=== PATIENT | female | born 1995 | race American Indian/Alaskan Native ===

== ENCOUNTER 2017-12-23 14:01 | Outpatient (CLI) | payer MEDICAID ==
[2017-12-23] MEDS ORDERED: LACTATED RINGERS 500 ML IV ONE (14:24)
[2017-12-23 15:15] VITALS: BP 104/56
== END 2017-12-23 15:10 | disposition home or self-care (01) ==
LOC: TRG 14:01
PROVIDERS: ATTEND Obstetrics & Gynecology
DX: O47.03 False labor before 37 completed weeks of gestation, third trimester (principal); Z3A.36 36 weeks gestation of pregnancy
CPT/HCPCS: 59025

== ENCOUNTER 2018-01-04 13:59 | Outpatient (CLI) | payer MEDICAID ==
[2018-01-04 15:21] VITALS: BP 114/71
--- NOTE | 2018-01-04 15:41 | Ultrasound Report ---
ULTRASOUND BIOPHYSICAL PROFILE: History: well being Technique: Transabdominal ultrasound with Doppler interrogation. 2 - breathing movements 2 - movements 2 - posture and tone 2 - Qualitative amniotic fluid volume 8 - TOTAL SCORE OF POSSIBLE 8 Heart Rate (bpm) 161
--- NOTE | 2018-01-04 17:52 | Ultrasound Report ---
FINAL REPORT PROCEDURE: US OB FOLLOW UP TECHNIQUE: Real-time transabdominal sonography of the uterus, placenta, amniotic fluid, adnexa, and fetus was performed with image documentation. Measurements were obtained to determine age/size. M-mode Doppler was used to document heartbeat. CPT 92552 HISTORY: well being COMPARISON: No prior studies are available for comparison. FINDINGS: ADDITIONAL GESTATION: None. GENERAL: IUP: Single living intrauterine . Position: Cephalic Placental position: Grade 2 fundal, without previa. Amniotic fluid volume: Normal. SYDNEY 11.9 MATERNAL: Uterus: Within normal limits. Cervical length: 3.8 cm. Internal Os: Closed. FETUS: Heart rate and rhythm: 159 BPM, Regular. MEASUREMENTS: BPD: 8.9 centimeters consistent 36 week 0 days HC: 34.6 consistent 40 week 1 day AC: 35.1 consistent 39 week 0 day FL: 7.2 consistent 36 week 4 day Mean Gestational Age (composite criteria): 38 weeks 0 days Ratio biometry: Cephalic index 75.2, HC/AC 0.99 Estimated Weight: 3438 grams. 50 th percentile Estimated Due Date (earliest scan): 01/18/2018 IMPRESSION: Single intrauterine gestation at 38 weeks 0 days. Estimated due date: 01/18/2018. Normal survey with no acute pathology seen at this time. SYDNEY 11.9. Followup anatomic survey details could be performed if warranted
== END 2018-01-04 16:35 | disposition home or self-care (01) ==
LOC: TRG 13:59
PROVIDERS: ATTEND Obstetrics & Gynecology
DX: O47.1 False labor at or after 37 completed weeks of gestation (principal); Z3A.38 38 weeks gestation of pregnancy
CPT/HCPCS: 59025; 76816; 76819

== ENCOUNTER 2018-01-08 14:50 | Outpatient (CLI) | payer MEDICAID ==
[2018-01-08 15:11] VITALS: BP 96/55
--- NOTE | 2018-01-08 16:32 | Ultrasound Report ---
FINAL REPORT EXAM: US OB BPP WO NON-STRESS HISTORY: well being TECHNIQUE: Ultrasound biophysical profile PRIORS: None. FINDINGS: Single live intrauterine gestation is present with heart rate of 149 beats per minute Biophysical profile was performed respiratory motion 2 Body movement 2 tone 2 Amniotic fluid volume 2 Total 05/30 Impression Normal biophysical profile 05/30
--- NOTE | 2018-01-08 16:36 | Ultrasound Report ---
FINAL REPORT EXAM: US OB LIMITED HISTORY: well being TECHNIQUE: Ultrasound obstetrical limited transabdominal PRIORS: None. FINDINGS: Single live intrauterine gestation present in cephalic position. cardiac activity is present with heart rate of 149 beats per minute Amniotic fluid index is within normal limits 14.3 centimeters IMPRESSION: Single live intrauterine gestation in cephalic position Normal amniotic fluid index
== END 2018-01-08 16:27 | disposition home or self-care (01) ==
LOC: TRG 14:50
PROVIDERS: ATTEND Obstetrics & Gynecology
DX: O47.1 False labor at or after 37 completed weeks of gestation (principal); Z3A.38 38 weeks gestation of pregnancy
CPT/HCPCS: 59025; 76815; 76819

== ENCOUNTER 2018-01-09 22:15 | Outpatient (CLI) | payer MEDICAID ==
[2018-01-09 22:53] VITALS: BP 121/76
== END 2018-01-10 00:55 | disposition home or self-care (01) ==
LOC: TRG 22:15
PROVIDERS: ATTEND Obstetrics & Gynecology
DX: O62.9 Abnormality of forces of labor, unspecified (principal); Z3A.39 39 weeks gestation of pregnancy
CPT/HCPCS: 59025

== ENCOUNTER 2018-01-16 10:27 | Inpatient (IN) | payer MEDICAID ==
[2018-01-16] MEDS ORDERED: STADOL IV PRN (11:37)
[2018-01-16] MEDS ORDERED: MINERAL OIL PO PRN (11:37)
[2018-01-16] MEDS ORDERED: SUBLIMAZE IV PRN (11:37)
[2018-01-16] MEDS ORDERED: ZOFRAN IV PRN ×2 (11:37→23:22)
[2018-01-16] MEDS ORDERED: XYLOCAINE 2% INFILTRATI ONE (11:37)
[2018-01-16] MEDS ORDERED: POLYCILLIN/NS 2 GM/100 ML 2 GM/100 ML BAG IV ONE (11:37)
[2018-01-16] MEDS ORDERED: ePHEDrine SULFATE IV PRN (11:37)
[2018-01-16] MEDS ORDERED: BRETHINE SUB-Q PRN (11:37)
--- NOTE | 2018-01-16 11:44 | History and Physical Report ---
History of Present Illness Date of examination: 01/16/18 Chief complaint: SROM @ 40 weeks History of present illness: EDC Calculations by LMP: 01/16/2018 Past History : 1 Term Births: 0 Premature Births: 0 Living Children: 0 Para: 0 Mult. Births: 0 Prev : 0 Prev. attempt? 0 Aborta: 0 Elect. Ab: 0 Spont. Ab: 0 Ectopics: 0 Past Medical History: Negative Past Medical History Past Surgical History: negative Past Medical History Anesthesia Complications: negative Anemia: negative Autoimmune Disorder: negative Bleeding Disorder: negative Blood Transfusions: negative Breast Disease: negative Diabetes: negative Heart Disease: negative Hypertension: negative Hepatitis/Liver Disease: negative Kidney Disease/UTI: negative Neurologic/Epilepsy/Migraines: negative Phlebitis/Varicosities: negative Psychiatric: negative Pulmonary Disease/Asthma: negative Thyroid Disease: negative Hospitalizations: negative Surgery (Non-cuprous chloride helper): negative Abnormal PAP: negative ELKE Exposure: negative Infertility: negative Uterine Anomaly: negative Uterine Surgery (not C/S): negative Other Gynecologic Problems: negative Family Hx: no known family medical hx Social Hx: single, lives with grandmother no smoking, drinking or drugs Infection History Hx of STD: none HIV Risk Eval: no Hepatitis B Risk Eval: low risk Personal hx. of genital herpes: no Partner hx. of genital herpes: no Rash, Viral, or Febrile illness since last LMP? no Varicella/Chicken Pox Status: Immunized Genetic History Congenital Heart Defect: Mom: no Dad: no Steffanie Disease: Mom: no Dad: no Thalassemia Mom: no Dad: no Neural Tube Defect Mom: no Dad: no Down's Syndrome Mom: no Dad: no Amrik-Sachs Mom: no Dad: no Sickle Cell Disease/Trait Mom: no Dad: no Hemophilia Mom: no Dad: no Muscular Dystrophy Mom: no Dad: no Cystic Fibrosis Mom: no Dad: no Sibley Chorea Mom: no Dad: no Mental Retardation Mom: no Dad: no Fragile X Mom: no Dad: no Other Genetic/Chromosomal Disorder Mom: no Dad: no Child w/other defect Mom: no Dad: no Enviromental Exposures Xray Exposure: no Medication, drug, or alcohol use since LMP: no Chemical/Other Exposure: no Exposure to Cat Liter: no Hx of Parvovirus (Fifth Disease): no Occupational Exposure to Children: none Current Allergies (reviewed today): No known allergies Past History Past Medical History: no pertinent history Past Surgical History: no surgical history - Obstetrical History Expected Date of Delivery: 01/16/18 Actual Gestation: 40 Week(s) 0 Day(s) : 1 Para: 0 Hx # Term Pregnancies: 0 Number of Pregnancies: 0 Spontaneous Abortions: 0 Induced : 0 Number of Living Children: 0 Medications and Allergies Allergies Allergy/AdvReac Type Severity Reaction Status Date / Time No Known Allergies Allergy Verified 12/23/17 14:26 Home Medications Medication Instructions Recorded Confirmed Last Taken Type Pnv,Calcium 72/Iron/Folic Acid 1 each PO DAILY 12/23/17 01/04/18 1 Day Ago History [Pnv Plus Multivit Tab] ~01/03/18 Review of Systems All systems: negative - Vital Signs Vital signs: Vital Signs Pulse BP 96 H 114/64 01/16/18 11:07 01/16/18 11:07 Temp Pulse Resp BP Pulse Ox 96 H 114/64 01/16/18 11:07 01/16/18 11:07 - Physical Exam Breasts: Positive: normal Cardiovascular: Regular rate Lungs: Positive: Clear to auscultation, Normal air movement Abdomen: Positive: normal appearance, soft Genitourinary (Female): Positive: normal external genitalia, normal perenium Vulva: both: normal Vagina: Positive: normal moisture Uterus: Positive: normal size, normal contour Anus/Rectum: Positive: normal perianal skin Extremities: Positive: normal Deep Tendon Reflex Grade: Normal +2 - Obstetrical FHR: category 1 Uterine Contraction Monitor Mode: External Cervical Dilatation: 3 (per forest products teacher) Uterine Contraction Pattern: Irregular Uterine Tone Measurement Phase: Contraction Uterine Contraction Intensity: Mild Results All other labs normal. Assessment and Plan 22y/o arrived to L&D with Gross SROM @ 40 wks. complicated by IUGR that has resolved and anemia. GBS +. Admission orders in EMR, anticipate . EFW 01/04/18 was 3438gms. - Patient Problems (1) 40 weeks gestation of Current Visit: Yes Status: Acute (2) GBS (group B Streptococcus carrier), +RV culture, currently Current Visit: Yes Status: Acute (3) SROM (spontaneous rupture of membranes) Current Visit: Yes Status: Acute
[2018-01-16] MEDS ORDERED: PITOCin/NS 20 UNIT/1000ML DRIP 20 UNITS/1,000 ML BAG IV SCH (12:00)
[2018-01-16] MEDS: NORMOSOL-R PH 7.4 1,000 ML IV SCH ×2 (13:23→21:06)
[2018-01-16 14:15] LABS: Hematocrit 31.5 % (30.3-42.9); Hemoglobin 10.8 gm/dl (10.1-14.3); Mean Corpuscular HGB Conc 34 % (30-34); Mean Corpuscular Hemoglobin 29 pg (28-32); Mean Corpuscular Volume 85 fl (79-97); Platelet Count 258 K/mm3 (140-440); Red Blood Count 3.71 M/mm3 (3.65-5.03); Red Cell Distribution Width 13.7 % (13.2-15.2)
[2018-01-16] MEDS: PITOCin/NS 30 UNIT/500ML 30 UNITS/500 ML BAG IV SCH ×3 (14:54→16:27)
[2018-01-16] MEDS: AMPICILLIN/NS 1 GM/50 ML 1 GM/50 ML BAG IV SCH ×2 (18:07→21:51)
--- NOTE | 2018-01-16 18:52 | Progress Note ---
Assessment and Plan - Patient Problems (1) 40 weeks gestation of Current Visit: Yes Status: Acute (2) GBS (group B Streptococcus carrier), +RV culture, currently Current Visit: Yes Status: Acute (3) SROM (spontaneous rupture of membranes) Current Visit: Yes Status: Acute Plan to address problem: -con't IOL with pitocin. now in active labor -anticipate -pt considering epidural at this time. Subjective - Subjective Date of service: 01/16/18 Principal diagnosis: IUP at term with SROM now active labor Interval history: Pt c/o painful contraction. Cx 5/70/0 at this time. She still does not desire to have an epidural. Patient reports: loss of fluid, movement normal, contractions Objective - Vital Signs Vital Signs: Vital Signs - 12hr 01/16/18 01/16/18 01/16/18 11:07 13:50 13:55 Temperature 97.8 F Pulse Rate 96 H 82 82 Respiratory 16 Rate Blood Pressure 114/64 110/62 Blood Pressure 110/62 [Left] O2 Sat by Pulse 100 81 L Oximetry 01/16/18 01/16/18 01/16/18 13:56 14:00 14:06 Temperature Pulse Rate 70 85 77 Respiratory Rate Blood Pressure Blood Pressure [Left] O2 Sat by Pulse 77 L 100 99 Oximetry 01/16/18 01/16/18 01/16/18 14:10 14:15 14:21 Temperature Pulse Rate 75 101 H 75 Respiratory Rate Blood Pressure Blood Pressure [Left] O2 Sat by Pulse 100 100 100 Oximetry 01/16/18 01/16/18 01/16/18 14:25 14:30 14:35 Temperature Pulse Rate 75 87 77 Respiratory Rate Blood Pressure Blood Pressure [Left] O2 Sat by Pulse 99 99 100 Oximetry 01/16/18 01/16/18 01/16/18 14:39 14:40 14:45 Temperature Pulse Rate 94 H 79 82 Respiratory Rate Blood Pressure Blood Pressure [Left] O2 Sat by Pulse 85 100 100 Oximetry 01/16/18 01/16/18 01/16/18 14:48 14:51 14:55 Temperature Pulse Rate 77 73 87 Respiratory Rate Blood Pressure Blood Pressure [Left] O2 Sat by Pulse 85 100 100 Oximetry 01/16/18 01/16/18 01/16/18 15:00 15:04 15:05 Temperature Pulse Rate 85 96 H Respiratory Rate Blood Pressure Blood Pressure [Left] O2 Sat by Pulse 99 90 98 Oximetry 01/16/18 01/16/18 01/16/18 15:09 15:11 15:15 Temperature Pulse Rate 83 76 Respiratory Rate Blood Pressure Blood Pressure [Left] O2 Sat by Pulse 80 L 100 99 Oximetry 01/16/18 01/16/18 01/16/18 15:20 15:30 15:35 Temperature Pulse Rate 77 78 78 Respiratory Rate Blood Pressure Blood Pressure [Left] O2 Sat by Pulse 100 97 99 Oximetry 01/16/18 01/16/18 01/16/18 15:41 15:45 15:50 Temperature Pulse Rate 96 H 82 81 Respiratory Rate Blood Pressure Blood Pressure [Left] O2 Sat by Pulse 100 99 100 Oximetry 01/16/18 01/16/18 01/16/18 15:55 16:00 16:05 Temperature Pulse Rate 77 90 83 Respiratory Rate Blood Pressure Blood Pressure [Left] O2 Sat by Pulse 100 98 99 Oximetry 01/16/18 01/16/18 01/16/18 16:11 16:15 16:20 Temperature Pulse Rate 81 83 80 Respiratory Rate Blood Pressure Blood Pressure [Left] O2 Sat by Pulse 99 98 97 Oximetry 01/16/18 01/16/18 01/16/18 16:25 16:30 16:35 Temperature Pulse Rate 80 84 87 Respiratory Rate Blood Pressure Blood Pressure [Left] O2 Sat by Pulse 98 98 97 Oximetry 01/16/18 01/16/18 01/16/18 16:41 16:44 16:45 Temperature Pulse Rate 90 98 H 104 H Respiratory Rate Blood Pressure Blood Pressure [Left] O2 Sat by Pulse 99 93 95 Oximetry 01/16/18 01/16/18 01/16/18 16:52 16:57 17:02 Temperature Pulse Rate 89 77 94 H Respiratory Rate Blood Pressure Blood Pressure [Left] O2 Sat by Pulse 100 100 100 Oximetry 01/16/18 01/16/18 01/16/18 17:07 17:12 17:17 Temperature Pulse Rate 91 H 92 H 81 Respiratory Rate Blood Pressure Blood Pressure [Left] O2 Sat by Pulse 100 100 98 Oximetry 01/16/18 01/16/18 01/16/18 17:23 17:28 17:32 Temperature Pulse Rate 89 82 94 H Respiratory Rate Blood Pressure Blood Pressure [Left] O2 Sat by Pulse 99 98 98 Oximetry 01/16/18 01/16/18 01/16/18 17:37 17:43 17:47 Temperature Pulse Rate 81 79 84 Respiratory Rate Blood Pressure Blood Pressure [Left] O2 Sat by Pulse 98 99 98 Oximetry 01/16/18 01/16/18 01/16/18 17:53 17:58 18:03 Temperature Pulse Rate 79 86 90 Respiratory Rate Blood Pressure Blood Pressure [Left] O2 Sat by Pulse 100 99 98 Oximetry 01/16/18 01/16/18 01/16/18 18:08 18:13 18:18 Temperature Pulse Rate 86 80 94 H Respiratory Rate Blood Pressure Blood Pressure [Left] O2 Sat by Pulse 98 98 98 Oximetry 01/16/18 01/16/18 01/16/18 18:23 18:30 18:36 Temperature Pulse Rate 85 89 87 Respiratory Rate Blood Pressure Blood Pressure [Left] O2 Sat by Pulse 98 100 98 Oximetry 01/16/18 01/16/18 01/16/18 18:41 18:46 18:50 Temperature Pulse Rate 99 H 96 H 92 H Respiratory Rate Blood Pressure Blood Pressure [Left] O2 Sat by Pulse 99 99 99 Oximetry 01/16/18 18:52 Temperature Pulse Rate 103 H Respiratory Rate Blood Pressure Blood Pressure [Left] O2 Sat by Pulse 91 Oximetry - Exam Uterus: Present: normal, firm. Absent: bogginess, tenderness FHR: category 1 Cervical Dilatation: 5 Cervical Effacement Percentage: 70 station: 0 Uterine Contraction Pattern: Regular Uterine Tone Measurement Phase: Resting Uterine Contraction Intensity: Moderate - Labs Labs: Laboratory Results - last 24 hr 01/16/18 01/16/18 13:50 13:50 WBC 7.2 RBC 3.71 Hgb 10.8 Hct 31.5 MCV 85 MCH 29 MCHC 34 RDW 13.7 Plt Count 258 Blood Type A POSITIVE Antibody Screen Negative
[2018-01-16] MEDS ORDERED: NARCAN 2 MG/2 ML IV PRN (20:24)
--- NOTE | 2018-01-16 20:26 | Anesthesia Consultation ---
Anesthesia Consult and Med Hx Date of service: 01/16/18 - Airway Anesthetic Teeth Evaluation: Good ROM Head & Neck: Adequate Mental/Hyoid Distance: Adequate Intubation Access Assessment: Probably Good - Pre-Operative Health Status ASA Pre-Surgery Classification: ASA2, Emergency Proposed Anesthetic Plan: Epidural, Spinal - Pulmonary Hx Asthma: No COPD: No Hx Pneumonia: No - Cardiovascular System Hx Hypertension: No - Central Nervous System Hx Seizures: No Hx Psychiatric Problems: No - Endocrine Hx Renal Disease: No Hx End Stage Renal Disease: No Hx Hypothyroidism: No Hx Hyperthyroidism: No - Hematic Hx Anemia: No Hx Sickle Cell Disease: No - Other Systems Hx Alcohol Use: No
[2018-01-16] MEDS ORDERED: fentaNYL-BUPIV 2 MCG/ML-0.125% 200 MCG/100 ML BAG EPIDURAL SCH (21:00)
--- NOTE | 2018-01-16 22:19 | Progress Note ---
Assessment and Plan - Patient Problems (1) 40 weeks gestation of Current Visit: Yes Status: Acute (2) GBS (group B Streptococcus carrier), +RV culture, currently Current Visit: Yes Status: Acute Plan to address problem: - s/p antibx (3) SROM (spontaneous rupture of membranes) Current Visit: Yes Status: Acute Plan to address problem: -now back on labor curve -await adequate contractions -ISE/ IUPC placed w/o difficulty -anticipate Subjective - Subjective Date of service: 01/16/18 Principal diagnosis: IUP at term with SROM now active labor Interval history: IUPC and ISE placed w/o difficulty. cx now 7-/0. Pt comfortable with epidural in place. Patient reports: loss of fluid, movement normal, contractions Objective - Vital Signs Vital Signs: Vital Signs - 12hr 01/16/18 01/16/18 01/16/18 11:07 13:50 13:55 Temperature 97.8 F Pulse Rate 96 H 82 82 Respiratory 16 Rate Blood Pressure 114/64 110/62 Blood Pressure 110/62 [Left] O2 Sat by Pulse 100 81 L Oximetry 01/16/18 01/16/18 01/16/18 13:56 14:00 14:06 Temperature Pulse Rate 70 85 77 Respiratory Rate Blood Pressure Blood Pressure [Left] O2 Sat by Pulse 77 L 100 99 Oximetry 01/16/18 01/16/18 01/16/18 14:10 14:15 14:21 Temperature Pulse Rate 75 101 H 75 Respiratory Rate Blood Pressure Blood Pressure [Left] O2 Sat by Pulse 100 100 100 Oximetry 01/16/18 01/16/18 01/16/18 14:25 14:30 14:35 Temperature Pulse Rate 75 87 77 Respiratory Rate Blood Pressure Blood Pressure [Left] O2 Sat by Pulse 99 99 100 Oximetry 01/16/18 01/16/18 01/16/18 14:39 14:40 14:45 Temperature Pulse Rate 94 H 79 82 Respiratory Rate Blood Pressure Blood Pressure [Left] O2 Sat by Pulse 85 100 100 Oximetry 01/16/18 01/16/18 01/16/18 14:48 14:51 14:55 Temperature Pulse Rate 77 73 87 Respiratory Rate Blood Pressure Blood Pressure [Left] O2 Sat by Pulse 85 100 100 Oximetry 01/16/18 01/16/18 01/16/18 15:00 15:04 15:05 Temperature Pulse Rate 85 96 H Respiratory Rate Blood Pressure Blood Pressure [Left] O2 Sat by Pulse 99 90 98 Oximetry 01/16/18 01/16/18 01/16/18 15:09 15:11 15:15 Temperature Pulse Rate 83 76 Respiratory Rate Blood Pressure Blood Pressure [Left] O2 Sat by Pulse 80 L 100 99 Oximetry 01/16/18 01/16/18 01/16/18 15:20 15:30 15:35 Temperature Pulse Rate 77 78 78 Respiratory Rate Blood Pressure Blood Pressure [Left] O2 Sat by Pulse 100 97 99 Oximetry 01/16/18 01/16/18 01/16/18 15:41 15:45 15:50 Temperature Pulse Rate 96 H 82 81 Respiratory Rate Blood Pressure Blood Pressure [Left] O2 Sat by Pulse 100 99 100 Oximetry 01/16/18 01/16/18 01/16/18 15:55 16:00 16:05 Temperature Pulse Rate 77 90 83 Respiratory Rate Blood Pressure Blood Pressure [Left] O2 Sat by Pulse 100 98 99 Oximetry 01/16/18 01/16/18 01/16/18 16:11 16:15 16:20 Temperature Pulse Rate 81 83 80 Respiratory Rate Blood Pressure Blood Pressure [Left] O2 Sat by Pulse 99 98 97 Oximetry 01/16/18 01/16/18 01/16/18 16:25 16:30 16:35 Temperature Pulse Rate 80 84 87 Respiratory Rate Blood Pressure Blood Pressure [Left] O2 Sat by Pulse 98 98 97 Oximetry 01/16/18 01/16/18 01/16/18 16:41 16:44 16:45 Temperature Pulse Rate 90 98 H 104 H Respiratory Rate Blood Pressure Blood Pressure [Left] O2 Sat by Pulse 99 93 95 Oximetry 01/16/18 01/16/18 01/16/18 16:52 16:57 17:02 Temperature Pulse Rate 89 77 94 H Respiratory Rate Blood Pressure Blood Pressure [Left] O2 Sat by Pulse 100 100 100 Oximetry 01/16/18 01/16/18 01/16/18 17:07 17:12 17:17 Temperature Pulse Rate 91 H 92 H 81 Respiratory Rate Blood Pressure Blood Pressure [Left] O2 Sat by Pulse 100 100 98 Oximetry 01/16/18 01/16/18 01/16/18 17:23 17:28 17:32 Temperature Pulse Rate 89 82 94 H Respiratory Rate Blood Pressure Blood Pressure [Left] O2 Sat by Pulse 99 98 98 Oximetry 01/16/18 01/16/18 01/16/18 17:37 17:43 17:47 Temperature Pulse Rate 81 79 84 Respiratory Rate Blood Pressure Blood Pressure [Left] O2 Sat by Pulse 98 99 98 Oximetry 01/16/18 01/16/18 01/16/18 17:53 17:58 18:03 Temperature Pulse Rate 79 86 90 Respiratory Rate Blood Pressure Blood Pressure [Left] O2 Sat by Pulse 100 99 98 Oximetry 01/16/18 01/16/18 01/16/18 18:08 18:13 18:18 Temperature Pulse Rate 86 80 94 H Respiratory Rate Blood Pressure Blood Pressure [Left] O2 Sat by Pulse 98 98 98 Oximetry 01/16/18 01/16/18 01/16/18 18:23 18:30 18:36 Temperature Pulse Rate 85 89 87 Respiratory Rate Blood Pressure Blood Pressure [Left] O2 Sat by Pulse 98 100 98 Oximetry 01/16/18 01/16/18 01/16/18 18:41 18:46 18:50 Temperature Pulse Rate 99 H 96 H 92 H Respiratory Rate Blood Pressure Blood Pressure [Left] O2 Sat by Pulse 99 99 99 Oximetry 01/16/18 01/16/18 01/16/18 18:52 18:55 19:01 Temperature Pulse Rate 103 H 91 H 85 Respiratory Rate Blood Pressure Blood Pressure [Left] O2 Sat by Pulse 91 97 100 Oximetry 01/16/18 01/16/18 01/16/18 19:03 19:06 19:11 Temperature Pulse Rate 87 90 84 Respiratory Rate Blood Pressure Blood Pressure [Left] O2 Sat by Pulse 89 98 99 Oximetry 01/16/18 01/16/18 01/16/18 19:15 19:16 19:21 Temperature 98.8 F Pulse Rate 89 99 H 81 Respiratory 18 Rate Blood Pressure 118/67 Blood Pressure 118/67 [Left] O2 Sat by Pulse 99 92 99 Oximetry 01/16/18 01/16/18 01/16/18 19:26 19:31 19:36 Temperature Pulse Rate 86 96 H 98 H Respiratory Rate Blood Pressure Blood Pressure [Left] O2 Sat by Pulse 98 98 97 Oximetry 01/16/18 01/16/18 01/16/18 19:41 19:46 19:51 Temperature Pulse Rate 92 H 93 H 100 H Respiratory Rate Blood Pressure Blood Pressure [Left] O2 Sat by Pulse 97 99 97 Oximetry 01/16/18 01/16/18 01/16/18 19:52 19:56 20:01 Temperature Pulse Rate 94 H 104 H 93 H Respiratory Rate Blood Pressure 105/52 Blood Pressure [Left] O2 Sat by Pulse 99 97 Oximetry 01/16/18 01/16/18 01/16/18 20:02 20:06 20:07 Temperature Pulse Rate 102 H 85 92 H Respiratory Rate Blood Pressure 110/67 105/60 Blood Pressure [Left] O2 Sat by Pulse 93 98 Oximetry 01/16/18 01/16/18 01/16/18 20:09 20:11 20:13 Temperature Pulse Rate 91 H 94 H 87 Respiratory Rate Blood Pressure 113/57 116/61 112/57 Blood Pressure [Left] O2 Sat by Pulse 99 Oximetry 01/16/18 01/16/18 01/16/18 20:15 20:16 20:18 Temperature Pulse Rate 82 86 90 Respiratory Rate Blood Pressure 106/56 106/58 Blood Pressure [Left] O2 Sat by Pulse 98 Oximetry 01/16/18 01/16/18 01/16/18 20:20 20:21 20:24 Temperature Pulse Rate 97 H 92 H 80 Respiratory Rate Blood Pressure 93/55 94/50 101/55 Blood Pressure [Left] O2 Sat by Pulse 100 Oximetry 01/16/18 01/16/18 01/16/18 20:25 20:26 20:31 Temperature Pulse Rate 83 78 76 Respiratory Rate Blood Pressure 111/59 114/59 Blood Pressure [Left] O2 Sat by Pulse 100 98 Oximetry 01/16/18 01/16/18 01/16/18 20:36 20:40 20:41 Temperature Pulse Rate 75 79 78 Respiratory Rate Blood Pressure Blood Pressure [Left] O2 Sat by Pulse 100 93 93 Oximetry 01/16/18 01/16/18 01/16/18 20:46 20:47 20:51 Temperature Pulse Rate 70 86 80 Respiratory Rate Blood Pressure Blood Pressure [Left] O2 Sat by Pulse 100 84 100 Oximetry 01/16/18 01/16/18 01/16/18 20:56 21:01 21:06 Temperature Pulse Rate 82 82 86 Respiratory Rate Blood Pressure Blood Pressure [Left] O2 Sat by Pulse 100 88 97 Oximetry 01/16/18 01/16/18 01/16/18 21:07 21:11 21:16 Temperature Pulse Rate 94 H 94 H 90 Respiratory Rate Blood Pressure 102/55 Blood Pressure [Left] O2 Sat by Pulse 100 100 Oximetry 01/16/18 01/16/18 01/16/18 21:21 21:26 21:31 Temperature Pulse Rate 90 88 92 H Respiratory Rate Blood Pressure Blood Pressure [Left] O2 Sat by Pulse 99 100 100 Oximetry 01/16/18 01/16/18 01/16/18 21:36 21:41 21:46 Temperature Pulse Rate 81 80 86 Respiratory Rate Blood Pressure 88/53 Blood Pressure [Left] O2 Sat by Pulse 100 100 100 Oximetry 01/16/18 01/16/18 01/16/18 21:49 21:51 21:54 Temperature Pulse Rate 83 81 89 Respiratory Rate Blood Pressure 87/48 Blood Pressure [Left] O2 Sat by Pulse 100 93 Oximetry 01/16/18 01/16/18 01/16/18 21:56 22:01 22:06 Temperature Pulse Rate 83 104 H 92 H Respiratory Rate Blood Pressure Blood Pressure [Left] O2 Sat by Pulse 100 100 100 Oximetry 01/16/18 01/16/18 01/16/18 22:07 22:11 22:16 Temperature Pulse Rate 98 H 99 H 97 H Respiratory Rate Blood Pressure 128/53 Blood Pressure [Left] O2 Sat by Pulse 100 100 Oximetry - Exam FHR: category 2 Cervical Dilatation: 7.5 Cervical Effacement Percentage: 90 station: 0 Uterine Contraction Pattern: Regular (but have spaced since epidural was placed) - Labs Labs: Laboratory Results - last 24 hr 01/16/18 01/16/18 13:50 13:50 WBC 7.2 RBC 3.71 Hgb 10.8 Hct 31.5 MCV 85 MCH 29 MCHC 34 RDW 13.7 Plt Count 258 Blood Type A POSITIVE Antibody Screen Negative
--- NOTE | 2018-01-16 23:21 | Procedure Note ---
OB Delivery Note - Delivery Date of Delivery: 01/16/18 Surgeon: SHEMAR HARRINGTON Estimated blood loss: 300cc - Vaginal Delivery presentation: vertex Delivery position: OA Delivery induction: oxytocin Delivery augmentation: pitocin Delivery monitor: external FHT, external uterine, internal FHT, internal uterine Route of delivery: Delivery placenta: spontaneous Episiotomy: none Delivery laceration: 2nd degree (perineal repaired with 3-0 vicryl) Delivery repair: vicryl Anesthesia: epidural Delivery comments: Delivery as above. There was no shoulder dystocia or nuchal cord present. was placed on maternal abdomen. cord clamped x 2 and cut x1 by FOB. Cord blood was not collected. Placenta delivered spontaneously intact. Laceration noted as above and repaired in usual fashion. EBL 300ml. Infant and mother stable in LDR. - A at 1 minute: 8 at 5 minutes: 9 Infant Gender: Female (6lbs 14oz)
[2018-01-16] MEDS ORDERED: BENADRYL PO PRN (23:22)
[2018-01-16] MEDS ORDERED: TUCKS PAD TP PRN (23:22)
[2018-01-16] MEDS ORDERED: MILK OF MAGNESIA PO PRN (23:22)
[2018-01-16] MEDS ORDERED: TYLENOL PO PRN (23:22)
[2018-01-16] MEDS ORDERED: DULCOLAX PR PRN (23:22)
[2018-01-16] MEDS ORDERED: PHENERGAN PO PRN (23:22)
[2018-01-16] MEDS ORDERED: PHENERGAN PR PRN (23:22)
[2018-01-16] MEDS ORDERED: LANSINOH TP PRN (23:22)
[2018-01-16] MEDS ORDERED: SODIUM CHLORIDE FLUSH SYRINGE 10 ML IV NR (23:45)
[2018-01-17] MEDS ORDERED: BOOSTRIX IM ONE (06:00)
--- NOTE | 2018-01-17 08:03 | Progress Note ---
Assessment and Plan patient doing well w/o complaints. Lochia scant, fundus firm, VSSAF, H&H ordered for 1123 this AM, pt w/o s/s anemia. encouraged on demand. Continue pathway, anticipate d/c home tomorrow. - Patient Problems (1) (normal spontaneous vaginal delivery) Current Visit: Yes Status: Acute Subjective - Subjective Date of service: 01/17/18 Principal diagnosis: day #1 s/p Interval history: EDC Calculations by LMP: 01/16/2018 Past History : 1 Term Births: 0 Premature Births: 0 Living Children: 0 Para: 0 Mult. Births: 0 Prev : 0 Prev. attempt? 0 Aborta: 0 Elect. Ab: 0 Spont. Ab: 0 Ectopics: 0 Past Medical History: Negative Past Medical History Past Surgical History: negative Past Medical History Anesthesia Complications: negative Anemia: negative Autoimmune Disorder: negative Bleeding Disorder: negative Blood Transfusions: negative Breast Disease: negative Diabetes: negative Heart Disease: negative Hypertension: negative Hepatitis/Liver Disease: negative Kidney Disease/UTI: negative Neurologic/Epilepsy/Migraines: negative Phlebitis/Varicosities: negative Psychiatric: negative Pulmonary Disease/Asthma: negative Thyroid Disease: negative Hospitalizations: negative Surgery (Non-infirmary attendant): negative Abnormal PAP: negative ELKE Exposure: negative Infertility: negative Uterine Anomaly: negative Uterine Surgery (not C/S): negative Other Gynecologic Problems: negative Family Hx: no known family medical hx Social Hx: single, lives with grandmother no smoking, drinking or drugs Infection History Hx of STD: none HIV Risk Eval: no Hepatitis B Risk Eval: low risk Personal hx. of genital herpes: no Partner hx. of genital herpes: no Rash, Viral, or Febrile illness since last LMP? no Varicella/Chicken Pox Status: Immunized Genetic History Congenital Heart Defect: Mom: no Dad: no Steffanie Disease: Mom: no Dad: no Thalassemia Mom: no Dad: no Neural Tube Defect Mom: no Dad: no Down's Syndrome Mom: no Dad: no Amrik-Sachs Mom: no Dad: no Sickle Cell Disease/Trait Mom: no Dad: no Hemophilia Mom: no Dad: no Muscular Dystrophy Mom: no Dad: no Cystic Fibrosis Mom: no Dad: no Alejandrina Chorea Mom: no Dad: no Mental Retardation Mom: no Dad: no Fragile X Mom: no Dad: no Other Genetic/Chromosomal Disorder Mom: no Dad: no Child w/other defect Mom: no Dad: no Enviromental Exposures Xray Exposure: no Medication, drug, or alcohol use since LMP: no Chemical/Other Exposure: no Exposure to Cat Liter: no Hx of Parvovirus (Fifth Disease): no Occupational Exposure to Children: none Current Allergies (reviewed today): No known allergies Patient reports: appetite normal, voiding normally, pain well controlled, ambulating normally, no dizzy ambulation, no nauseated : doing well, nursing well (breast and bottle feeding - encouraged breast feeding) Objective - Vital Signs Latest vital signs: Vital Signs Temp Pulse Resp BP BP Pulse Ox 01/17/18 04:20 98.0 F 86 18 105/55 01/17/18 00:56 98.2 F 94 H 18 108/68 01/17/18 00:20 91 H 93 01/17/18 00:17 97 H 86 01/17/18 00:15 91 H 100 01/17/18 00:10 87 100 01/17/18 00:06 101 H 131/63 94 01/17/18 00:04 109 H 96 01/17/18 00:00 88 78 L 01/16/18 23:59 71 86 01/16/18 23:45 89 96 01/16/18 23:42 94 H 89 01/16/18 23:40 89 99 01/16/18 23:36 96 H 130/60 01/16/18 23:35 101 H 88 01/16/18 23:30 106 H 98 01/16/18 23:28 102 H 92 01/16/18 23:25 101 H 100 01/16/18 23:20 100 H 100 01/16/18 23:15 105 H 95 01/16/18 23:14 102 H 91 01/16/18 23:10 105 H 97 01/16/18 23:09 103 H 118/55 92 01/16/18 23:07 106 H 122/56 01/16/18 23:00 98.0 F 109 H 18 118/55 98 01/16/18 22:46 100 H 100 01/16/18 22:42 96 H 84 01/16/18 22:41 98 H 98 01/16/18 22:39 86 107/54 01/16/18 22:36 85 96 03//18 22:32 89 91 03/18 22:31 96 H 100 0318 22:27 97 H 70 L 0318 22:26 89 100 0318 22:21 92 H 100 0318 22:16 97 H 100 18 22:11 99 H 100 0318 22:07 98 H 128/53 03/18 22:06 92 H 100 18 22:01 104 H 100 03/18 21:56 83 100 03/18 21:54 89 93 0318 21:51 81 100 03/18 21:49 83 87/48 03/18 21:46 86 100 18 21:41 80 100 0318 21:36 81 88/53 100 18 21:31 92 H 100 18 21:26 88 100 0318 21:21 90 99 0318 21:16 90 100 0318 21:11 94 H 100 18 21:07 94 H 102/55 0318 21:06 86 97 03/18 21:01 82 88 03/18 20:56 82 100 18 20:51 80 100 18 20:47 86 84 0318 20:46 70 100 01/16/18 20:41 78 93 03/18 20:40 79 93 03/18 20:36 75 100 0318 20:31 76 114/59 98 03/18 20:26 78 100 03/18 20:25 83 111/59 03/18 20:24 80 101/55 03//18 20:21 92 H 94/50 100 03/18 20:20 97 H 93/55 03//18 20:18 90 106/58 03/18 20:16 86 98 03//18 20:15 82 106/56 03/18 20:13 87 112/57 03//18 20:11 94 H 116/61 99 03/18 20:09 91 H 113/57 03/18 20:07 92 H 105/60 03/27/18 20:06 85 110/67 98 03/27/18 20:02 102 H 93 03/27/18 20:01 93 H 97 03/27/18 19:56 104 H 99 03//18 19:52 94 H 105/52 03/27/18 19:51 100 H 97 03/27/18 19:46 93 H 99 03/27/18 19:41 92 H 97 03//18 19:36 98 H 97 03//18 19:31 96 H 98 03//18 19:26 86 98 03/27/18 19:21 81 118/67 99 03//18 19:16 99 H 92 03/18 19:15 98.8 F 89 18 118/67 99 03//18 19:11 84 99 03//18 19:06 90 98 03//18 19:03 87 89 03/18 19:01 85 100 03//18 18:55 91 H 97 03//18 18:52 103 H 91 03//18 18:50 92 H 99 03//18 18:46 96 H 99 03//18 18:41 99 H 99 03//18 18:36 87 98 03//18 18:30 89 100 03//18 18:23 85 98 03//18 18:18 94 H 98 03//18 18:13 80 98 03//18 18:08 86 98 03/27/18 18:03 90 98 03/27/18 17:58 86 99 03/27/18 17:53 79 100 03/27/18 17:47 84 98 03/27/18 17:43 79 99 03/27/18 17:37 81 98 03/27/18 17:32 94 H 98 03/27/18 17:28 82 98 03/27/18 17:23 89 99 03/27/18 17:17 81 98 03/27/18 17:12 92 H 100 03/27/18 17:07 91 H 100 03/27/18 17:02 94 H 100 03/27/18 16:57 77 100 03/27/18 16:52 89 100 03/27/18 16:45 104 H 95 03/27/18 16:44 98 H 93 03/27/18 16:41 90 99 01/16/18 16:35 87 97 01/16/18 16:30 84 98 01/16/18 16:25 80 98 01/16/18 16:20 80 97 01/16/18 16:15 83 98 01/16/18 16:11 81 99 01/16/18 16:05 83 99 01/16/18 16:00 90 98 01/16/18 15:55 77 100 01/16/18 15:50 81 100 01/16/18 15:45 82 99 01/16/18 15:41 96 H 100 01/16/18 15:35 78 99 01/16/18 15:30 78 97 01/16/18 15:20 77 100 01/16/18 15:15 76 99 01/16/18 15:11 83 100 01/16/18 15:09 80 L 01/16/18 15:05 96 H 98 01/16/18 15:04 90 01/16/18 15:00 85 99 01/16/18 14:55 87 100 01/16/18 14:51 73 100 01/16/18 14:48 77 85 01/16/18 14:45 82 100 01/16/18 14:40 79 100 01/16/18 14:39 94 H 85 01/16/18 14:35 77 100 01/16/18 14:30 87 99 01/16/18 14:25 75 99 01/16/18 14:21 75 100 01/16/18 14:15 101 H 100 01/16/18 14:10 75 100 01/16/18 14:06 77 99 01/16/18 14:00 85 100 01/16/18 13:56 70 77 L 01/16/18 13:55 82 110/62 81 L 01/16/18 13:50 97.8 F 82 16 110/62 100 01/16/18 11:07 96 H 114/64 Intake and Output 01/16/18 01/17/18 01/17/18 23:59 07:59 15:59 Intake Total 1092.583 360 Output Total 2000 Balance 1092583 1640 Intake: IV 1092.583 AMPICILLIN/NS 1 GM/50 ML 50 1 gm In 50 ml @ 100 mls/ hr IV Q4HR ON LICENSE OF [facility] Rx#: [id number] Normosol-R pH 7.4 1,000 964.583 ml @ 125 mls/hr IV DIRECT DEONNA Rx#:[id number] PITOCin/NS 30 UNIT/500ML 78.0 30 units In 500 ml @ 4 mls/hr IV TITR DEONNA Rx#: [id number] Oral 360 Output: Urine 2000 Void 2000 Other: Total, Intake Amount 240 Total, Output Amount 800 Estimated Blood Loss 300 - Exam Breasts: Present: normal, Cardiovascular: Present: Regular rate Lungs: Present: Clear to auscultation, Normal air movement Abdomen: Present: normal appearance, soft Vulva: both: laceration/episiotomy Uterus: Present: normal, firm, fundal height at umbilicus Extremities: Present: normal Incision: Present: normal, dry, intact
[2018-01-17] MEDS: MOTRIN PO SCH ×3 (09:12→18:49)
[2018-01-17 13:52] LABS: Hematocrit 29.4 % (30.3-42.9); Hemoglobin 9.9 gm/dl (10.1-14.3)
[2018-01-17] MEDS: NORCO 5/325 PO PRN ×2 (14:43→22:11)
[2018-01-18] MEDS: MOTRIN PO SCH ×3 (00:40→11:04)
[2018-01-18] MEDS: NORCO 5/325 PO PRN ×2 (05:27→11:02)
--- NOTE | 2018-01-18 06:19 | Discharge Summary ---
Providers - Providers Date of Admission: 01/16/18 12:01 Date of discharge: 01/18/18 (pt agrees with d/c ) Attending physician: SHEMAR HARRINGTON Primary care physician: JEREMIAH BELTRE Hospitalization Reason for admission: active labor Delivery: Episiotomy: none Laceration: 2nd degree Incision: normal, dry, intact Other procedures: none complications: none Discharge diagnosis: IUP at term delivered baby: female Hospital course: uncomplicated vaginal delivery Pt w/o complaint VSS FF below umb Lochia small perineum swollen intact Stable H& H Asymptomatic anemia Doing well s/p vag delivery P: d/c today with instructions RTO 4 weeks PP care. Condition at discharge: Good Disposition: DC-01 TO HOME OR SELFCARE - Discharge Diagnoses (1) (normal spontaneous vaginal delivery) Status: Acute Comment: RTO 4 weeks PP care Plan - Provider Discharge Summary Activity: routine, no sex for 6 weeks, no heavy lifting 4 weeks, no strenuous exercise Diet: routine Instructions: routine Additional instructions: [] Smoking cessation referral if applicable(refer to patient education folder for contact #) [] Refer to [facility] Booklet Call your doctor immediately for: * Fever > 100.5 * Heavy vaginal bleeding ( >1 pad per hour) * Severe persistent headache * Shortness of breath * Reddened, hot, painful area to leg or breast * Drainage or odor from incision. * Keep incision clean and dry at all times and follow doctor's instructions regarding bathing/showering - Follow up plan Follow up: JEREMIAH BELTRE MD [Primary Care Provider] - 02/16/18 (Congratulations! Please call [phone] to schedule your exam in 4 weeks. Take medication as instructed. Call with concerns.)
[2018-01-18 13:10] VITALS: BP 118/76
== END 2018-01-18 12:50 | disposition home or self-care (01) | DRG 775 ==
LOC: TRG 10:27 → LD 12:01 → OB 01-17 01:00
PROVIDERS: ADMIT Obstetrics & Gynecology; ATTEND Obstetrics & Gynecology
PROC: 10E0XZZ Delivery of Products of Conception, External Approach (ICD-10-PCS; principal; 2018-01-16)
PROC: 0KQM0ZZ Repair Perineum Muscle, Open Approach (ICD-10-PCS; 2018-01-16)
PROC: 3E033VJ Introduction of Other Hormone into Peripheral Vein, Percutaneous Approach (ICD-10-PCS; 2018-01-16)
PROC: 3E0R3BZ Introduction of Anesthetic Agent into Spinal Canal, Percutaneous Approach (ICD-10-PCS; 2018-01-16)
PROC: 00HU33Z Insertion of Infusion Device into Spinal Canal, Percutaneous Approach (ICD-10-PCS; 2018-01-16)
DX: O99.824 Streptococcus B carrier state complicating childbirth (principal); O36.5930 Maternal care for other known or suspected poor fetal growth, third trimester, not applicable or unspecified; O70.1 Second degree perineal laceration during delivery; D64.9 Anemia, unspecified; O99.02 Anemia complicating childbirth; Z37.0 Single live birth; Z3A.40 40 weeks gestation of pregnancy; O42.02 Full-term premature rupture of membranes, onset of labor within 24 hours of rupture
CPT/HCPCS: 36415; 85014; 85018; 85027; 86592; 86850; 86900; 86901; 88307; 99211; G0463; J0290; J2590